=== PATIENT | male | born 1950 | race Caucasian/White ===

== ENCOUNTER → 2019-06-18 | Outpatient (CLI) | payer OTHER ==
--- NOTE | 2019-06-18 11:35 | RAD ---
EXAM: Abdomen and pelvis CT without intravenous contrast. HISTORY: Right flank pain. TECHNIQUE: Computed tomographic images of the abdomen and pelvis were obtained without contrast. Multiplanar reformatting was performed. *One or more of the following individualized dose reduction techniques were utilized for this examination: 1. Automated exposure control. 2. Adjustment of the mA and/or kV according to patient size. 3. Use of iterative reconstruction technique. COMPARISON: None. FINDINGS: Evaluation of the lower thorax demonstrates bilateral basilar atelectasis or scarring. The heart is normal in size. There is coronary artery atherosclerosis. There is suspected hepatic steatosis. No focal hepatic lesion is seen. The gallbladder, pancreas, spleen and adrenal glands are unremarkable. There is severe right hydronephrosis and hydroureter extending to an obstructing 6 mm stone within the mid ureter. There are multiple nonobstructing renal stones, the largest of which measures 3 mm on the right and 11 and on the left. There are extensive left greater than right renal parapelvic cysts, the largest of which on the left measures 5.4 cm. There is a 2.6 cm exophytic cyst within the posterior mid zone of the left kidney. No convincing solid lesion is seen. There is right perinephric and periureteral stranding due to aforementioned obstruction. The urinary bladder is unremarkable. No abnormally thickened or dilated loop of bowel is seen. There is distal colonic diverticulosis without diverticulitis. There is no lymphadenopathy. The aorta is normal in caliber. There are degenerative changes involving the spine. There is no suspicious osseous lesion. IMPRESSION: 1. Severe right hydronephrosis and hydroureter secondary to an obstructing 6 mm stone within the mid ureter. There are multiple nonobstructing bilateral renal stones. 2. Left greater than right renal parapelvic cysts and small left renal cortical cyst. No convincing solid lesion is seen on this noncontrast exam. 3. Sigmoid diverticulosis. Electronically signed by: Anahi Au MD (06/18/2019 11:33 AM) [place] [id number]
== END | disposition home or self-care (01) ==
LOC: CT 10:59
PROVIDERS: ATTEND Physician Assistant Medical
DX: N13.1 Hydronephrosis with ureteral stricture, not elsewhere classified (principal); N13.4 Hydroureter; N20.0 Calculus of kidney; N28.1 Cyst of kidney, acquired; K57.30 Diverticulosis of large intestine without perforation or abscess without bleeding; M47.817 Spondylosis without myelopathy or radiculopathy, lumbosacral region; I25.10 Atherosclerotic heart disease of native coronary artery without angina pectoris
CPT/HCPCS: 74176

== ENCOUNTER → 2019-07-09 | Outpatient (CLI) | payer OTHER ==
--- NOTE | 2019-07-10 09:37 | RAD ---
EXAM: Supine AP view of the abdomen DATE: 07/09/2019 12:00 AM INDICATION: Abdominal pain, renal calculi COMPARISON: CT 06/18/2019 FINDINGS: No abnormal small or large bowel dilatation. Moderate colonic stool content. No abnormal soft tissue mass effect. Numerous calcifications are seen projecting over the expected renal fossa bilaterally, likely renal calculi as seen on prior CT. No obvious calcification is seen in the expected region of the ureteral calculus on prior CT although radiographs are limited. Evaluation for free intraperitoneal gas is limited on this supine exam. IMPRESSION: 1. Bilateral renal calculi. 2. The calculus within the right ureter seen on prior CT is not definitively seen by radiographs although CT is more sensitive. Electronically signed by: Ankit Miramontes MD (07/10/2019 9:35 AM) [facility]
== END | disposition home or self-care (01) ==
LOC: RAD 14:48
PROVIDERS: ATTEND Physician Assistant Medical
DX: N20.2 Calculus of kidney with calculus of ureter (principal)
CPT/HCPCS: 74018

== ENCOUNTER → 2019-08-02 | Outpatient (CLI) | payer OTHER ==
--- NOTE | 2019-08-02 15:22 | RAD ---
Abdominal radiograph 08/02/2019 12:00 AM Indication: Left flank pain with recent lithotripsy of the left kidney stone.. Comparison: CT abdomen/pelvis 06/18/2019. Technique: Frontal supine radiographs of the abdomen were obtained. Findings: There is no free intraperitoneal air. There is no portal venous gas. No pneumatosis coli. There are no dilated loops of small or large bowel. There are no differential air-fluid levels. There is no organomegaly. Fragmented calculi are suspected along the distal left ureter at the ureterovesicular junction. Stable appearance of at least 2 calculi projecting over left renal shadow measuring 7 and 6 mm. There are at least 2 calculi project over the right renal shadow measuring 3 and 5 mm. No suspicious osseous abnormality is identified. IMPRESSION Bilateral nonobstructing renal calculi are identified. Fragmented calculi are identified within the distal left ureter at the ureterovesicular junction. There may be a few calculi within the urinary bladder. Findings correspond with recent history of lithotripsy. Electronically signed by: Nati Mac MD (08/02/2019 3:19 PM) [id number]
== END | disposition home or self-care (01) ==
LOC: DXRAD 14:46
PROVIDERS: ATTEND Physician Assistant Medical
DX: N20.0 Calculus of kidney (principal); Z87.442 Personal history of urinary calculi
CPT/HCPCS: 74018

== ENCOUNTER → 2019-08-29 | Outpatient (CLI) | payer MEDICARE, OTHER ==
--- NOTE | 2019-08-29 16:58 | RAD ---
EXAM: ABDOMEN ONE VIEW. HISTORY: Renal stones. COMPARISON: 08/23/2019. 06/18/2019. FINDINGS: A frontal view of the abdomen is obtained. Left renal calculi measure 6 mm in the left lower pole and interpolar region. On the right, multiple small calculi measure 2 mm or less. A right hemipelvic calculus on prior studies is no longer seen and may have passed. There are no distended small bowel loops. There is gas distally. There are moderate degenerative changes at L5-S1. IMPRESSION: 1. A right distal ureteral calculus appears to have passed. Correlate with symptoms. 2. Bilateral renal calculi measure up to 6 mm on the left. Electronically signed by: Hi Bell MD (08/29/2019 4:55 PM) [facility]
== END | disposition home or self-care (01) ==
LOC: DXRAD 14:50
PROVIDERS: ATTEND Physician Assistant Medical
DX: N20.0 Calculus of kidney (principal)
CPT/HCPCS: 74018

== ENCOUNTER → 2019-10-31 | Outpatient (CLI) | payer MEDICARE, OTHER ==
--- NOTE | 2019-10-31 16:59 | RAD ---
AP view of the abdomen Clinical indications: Kidney stone. COMPARISON: August 29, 2019. FINDINGS: There are 2 radiopaque stones of the left kidney; one within the lateral mid aspect measuring 6 mm in size and one within the the lower pole measuring 7 mm. Multiple radiopaque punctate stones of the mid aspect and lower pole of the right kidney are again seen. Small radiopacities of the right side of the anatomic pelvis are again seen and therefore may represent calcified phleboliths. No obstructive bowel pattern is evident. Mild fecal retention is seen. The osseous structures are intact. IMPRESSION: No significant change in radiopaque bilateral renal stones. Electronically signed by: Marcelo Reed MD (10/31/2019 4:56 PM) [id number]
== END | disposition home or self-care (01) ==
LOC: DXRAD 14:36
PROVIDERS: ATTEND Physician Assistant Medical
DX: N20.0 Calculus of kidney (principal); K59.00 Constipation, unspecified
CPT/HCPCS: 74018

== ENCOUNTER → 2020-04-30 | Outpatient (CLI) | payer MEDICARE ==
--- NOTE | 2020-04-30 15:59 | RAD ---
EXAM: ABDOMEN ONE VIEW. HISTORY: Renal stones. COMPARISON: 10/31/2019. FINDINGS: A frontal view of the abdomen is obtained. Bilateral renal calculi measure up to 8 mm in the left lower pole, and 4.5 mm in the right interpolar region. Smaller calculi are scattered in the left interpolar region and right upper pole. No ureteral calculi are seen by radiographs. There are no distended small bowel loops. There is gas distally. There are moderate degenerative changes of the lower lumbar spine. IMPRESSION: 1. Bilateral renal calculi measure up to 8 mm on the left. Electronically signed by: Hi Bell MD (04/30/2020 3:56 PM) [id number]
== END ==
LOC: DXRAD 14:36
PROVIDERS: ATTEND Physician Assistant Medical
DX: N20.0 Calculus of kidney (principal); Z87.442 Personal history of urinary calculi
CPT/HCPCS: 74018

== ENCOUNTER → 2020-11-05 | Outpatient (CLI) | payer MEDICARE ==
--- NOTE | 2020-11-06 01:24 | RAD ---
EXAM: Supine AP view of the abdomen DATE: 11/05/2020 2:44 PM INDICATION: Reason: KIDNEY STONES / Spl. Instructions: / History: COMPARISON: No Prior FINDINGS: No abnormal small or large bowel dilatation. Moderate colonic stool content. No abnormal soft tissu e mass effect. Complications project over the expected left renal fossa, including a 7 mm in the exp ected interpolar region and a 6 mm in the expected lower pole. Smaller calcifications also project ov er the right renal fossa. Evaluation for free intraperitoneal gas is limited on this supine exam. IMPRESSION: 1. No evidence for bowel obstruction. 2. Calcifications bilaterally project over both renal fossa, suspicious for renal calculi. However t hese calcifications may also be within the overlying structures such as bowel. Electronically signed by: Ankit Miramontes MD (11/06/2020 1:22 AM) [facility]
== END ==
LOC: DXRAD 14:38
PROVIDERS: ATTEND Urology
DX: N20.0 Calculus of kidney (principal)
CPT/HCPCS: 74018

== ENCOUNTER → 2021-06-24 | Outpatient (CLI) | payer MEDICARE, OTHER ==
--- NOTE | 2021-06-25 09:49 | RAD ---
XR ABDOMEN 1V History: Reason: KIDNEY STONE / Spl. Instructions: / History: Technique: Supine views of the abdomen. Comparison: November 05, 2020 Findings: Bilateral nephrolithiasis. Largest calculus on the left measures 0.7 cm. Largest calculus on the righ t measures 0.5 cm. Punctate calcification within the region of the left renal pelvis measures 2 mm. N onobstructed bowel gas pattern. Lower lumbar spondylosis. Phleboliths projecting over the right pelvi s. Impression: 1. Bilateral nephrolithiasis, unchanged. 2. Punctate calcification within the region of the left renal pelvis. CT can further evaluate for ca lculus if concern for left sided pain. Electronically signed by: Med Fang DO (06/25/2021 9:46 AM) [id number]
== END ==
LOC: RAD 14:52
PROVIDERS: ATTEND Physician Assistant Medical
DX: N20.0 Calculus of kidney (principal); N28.89 Other specified disorders of kidney and ureter; M47.816 Spondylosis without myelopathy or radiculopathy, lumbar region
CPT/HCPCS: 74018

== ENCOUNTER → 2022-01-20 | Outpatient (CLI) | payer OTHER ==
--- NOTE | 2022-01-21 11:35 | RAD ---
KUB compared to similar exam dated 06/23/2021 for bilateral kidney stones. FINDINGS: There is redemonstration of 2 calyceal calculi on the left the largest which measures 7 mm. These are unchanged in appearance and distribution of the right exam. A few 4 mm calcific densities project over the right renal shadow is well, and are likely stable right renal calculi. No calculi wi thin this patient ureters or urinary bladder. Degenerative changes at L5-S1. Impression: 1. Stable bilateral renal calculi. Electronically signed by: Alex Mauro MD (01/21/2022 11:33 AM) [id number]
== END ==
LOC: RAD 14:40
PROVIDERS: ATTEND Physician Assistant Medical
DX: N20.0 Calculus of kidney (principal)
CPT/HCPCS: 74018